=== PATIENT | female | born 1985 | race Caucasian/White ===

== ENCOUNTER 2017-02-03 00:10 | Emergency (ER) | payer MEDICAID ==
[~2017-02-03] VITALS: Ht 167.6 cm; Wt 89.0 kg
[2017-02-03 00:33] VITALS: BP 126/77
== END 2017-02-03 01:30 | disposition left against medical advice (07) ==
LOC: ER 00:10
DX: Z53.21 Procedure and treatment not carried out due to patient leaving prior to being seen by health care provider (principal)